=== PATIENT | male | born 1955 | race Caucasian/White ===

== ENCOUNTER 2023-03-10 09:12 | Outpatient (CLI) | payer MEDICARE, OTHER ==
--- NOTE | 2023-03-10 20:18 | XRAY Report ---
PROCEDURE: Foot 2 View RT INDICATIONS: RIGHT FOOT PAIN TECHNIQUE: 3 views of the foot were obtained. COMPARISON: None FINDINGS: Bones: No fractures or dislocations. No suspicious bony lesions. Moderate plantar calcaneal spur Soft tissues: Unremarkable. No radiopaque foreign body. Dorsal localized soft tissue swelling noted o saida the distal tarsal row. No underlying Osseous erosion. IMPRESSION: Localized dorsal soft tissue swelling without osseous erosion. Calcaneal spur Reviewed by: Tom Fisher MD on 03/10/2023 7:17 PM [place] Approved by: Tom Fisher MD on 03/10/2023 7:17 PM [place] Station ID: [id number]
== END 2023-03-10 09:13 | disposition home or self-care (01) ==
LOC: DI 09:12
PROVIDERS: ATTEND Nurse Practitioner
DX: M77.31 Calcaneal spur, right foot (principal); R93.6 Abnormal findings on diagnostic imaging of limbs; R93.89 Abnormal findings on diagnostic imaging of other specified body structures

== ENCOUNTER 2023-12-06 08:06 | Observation (INO) | payer MEDICARE, OTHER ==
[2023-12-06] MEDS: ADENOSINE 6 MG/2 ML VIAL IVP STA (08:27)
--- NOTE | 2023-12-06 08:27 | ED Physician Documentation ---
History of Present Illness - Stated complaint Stated Complaint: SOA,SORE THROAT,CONGESTION - Chief complaint Chief Complaint: Cardiac - History obtained from History obtained from: Patient - History of Present Illness Timing: How many weeks ago (1) Pain level max: 0 Pain level now: 0 - Additonal information Additional information: Patient is a 67-year-old male who presents to the emergency department complaining of 1 week of shortness of breath, cough, congestion. He states that he is not having any chest pain but does feel short of breath. History of atrial fibrillation with multiple ablations in the past. He did not take his metoprolol this morning. Patient states does not have a support clerk locally, his prior ablations and cardiac care were in [place]. Review of Systems Constitutional: reports: Chills. denies: Fever Nose: reports: Rhinorrhea / runny nose, Congestion Throat: denies: Oral lesions / sores, Sore throat Cardiac: reports: Palpitations. denies: Chest pain / pressure Respiratory: reports: Dyspnea, Cough GI: denies: Abdominal Pain, Nausea, Vomiting, Diarrhea Skin: denies: Rash Musculoskeletal: denies: Neck pain, Back pain Neurologic: denies: Headache PD PAST MEDICAL HISTORY - Past Medical History Past Medical History: Yes Cardiovascular: Congestive heart failure, Hypertension, High cholesterol, Atrial fibrillation - Past Surgical History Past Surgical History: Yes - Present Medications Home Medications: Ambulatory Orders Medication Instructions Recorded Confirmed Aspirin Chewable [[place] 81 mg PO DAILY 12/06/23 12/06/23 Aspirin] Atorvastatin [Lipitor] 10 mg PO QPM 12/06/23 12/06/23 Cetirizine [ZyrTEC] 10 mg PO MOWEFR 12/06/23 12/06/23 Magnesium Citrate 250 mg PO DAILY 12/06/23 12/06/23 Metoprolol Succinate [Toprol Xl] 50 mg PO DAILY 12/06/23 12/06/23 Multivitamin [Theragran] 1 each PO DAILY 12/06/23 12/06/23 Spironolactone [Aldactone] 25 mg PO DAILY 12/06/23 12/06/23 - Allergies Allergies/Adverse Reactions: Allergies Allergy/AdvReac Type Severity Reaction Status Date / Time No Known Drug Allergies Allergy Verified 12/06/23 08:24 - Social History Does the pt smoke?: No Smoking Status: Never smoker Does the pt drink ETOH?: Yes Does the pt have substance abuse?: No PD ED PE NORMAL - Vitals Vital signs reviewed: Yes - General General: Alert and oriented X 3, No acute distress, Well developed/nourished - HEENT HEENT: PERRL, Moist mucous membranes - Cardiac Cardiac: Other (Tachycardic) - Respiratory Respiratory: Other (Diminished breath sounds bilaterally) - Abdomen Abdomen: Soft, Non tender, Non distended - Derm Derm: Warm and dry, No rash - Extremities Extremities: No calf tenderness / cord, Other (1+ bilateral lower extremity edema) - Neuro Neuro: Alert and oriented X 3 - Psych Psych: Normal mood, Normal affect Results - Vitals Vitals: Vital Signs - 24 hr 12/06/23 12/06/23 08:11 10:24 Temperature 36.4 C L Heart Rate 240 H 120 H Respiratory 20 20 Rate Blood Pressure 125/98 H 152/128 H O2 Saturation 95 94 Oxygen O2 Source Room air - EKG (time done) 0821 EKG releavant findings:: EKG personally interpreted by author of this note. Relevant findings are: Rate: Rate (enter#) (193) Rhythm: Atrial fibrillation (RVR) [place]: Normal QRS: Normal Ischemia: Non specific changes (rate related changes) - Labs Labs: Laboratory Tests 12/06/23 12/06/23 12/06/23 08:29 08:31 08:31 WBC 10.3 RBC 4.97 Hgb 16.1 Hct 48.7 MCV 98.0 H MCH 32.4 H MCHC 33.1 RDW 15.4 H Plt Count 211 MPV 9.4 Neut # (Auto) 7.6 H Lymph # (Auto) 1.5 Chase # (Auto) 0.9 Eos # (Auto) 0.2 Baso # (Auto) 0.1 Absolute Nucleated RBC 0.00 Nucleated RBC % 0.0 Sodium 139 Potassium 4.3 Chloride 104 Carbon Dioxide 21 Anion Gap 14.0 H BUN 21 H Creatinine 0.9 Estimated GFR (MDRD) 84 L Glucose 117 H Calcium 8.7 Total Bilirubin 1.5 H AST 52 H ALT 33 Alkaline Phosphatase 101 Troponin I High Sens B-Natriuretic Peptide Total Protein 7.0 Albumin 3.3 Globulin 3.7 Albumin/Globulin Ratio 0.9 L Lipase 14 Nasal Adenovirus (PCR) NOT DETECTED Nasal B. parapertussis DNA (PCR) NOT DETECTED Nasal Coronavir 229E PCR NOT DETECTED Nasal Coronavir HKU1 PCR NOT DETECTED Nasal Coronavir NL63 PCR NOT DETECTED Nasal Coronavir OC43 PCR NOT DETECTED Nasal Enterovir/Rhinovir PCR NOT DETECTED Nasal Influenza B PCR NOT DETECTED Nasal Influenza A PCR NOT DETECTED Nasal Parainfluen 1 PCR NOT DETECTED Nasal Parainfluen 2 PCR NOT DETECTED Nasal Parainfluen 3 PCR NOT DETECTED Nasal Parainfluen 4 PCR NOT DETECTED Nasal RSV (PCR) NOT DETECTED Nasal B.pertussis DNA PCR NOT DETECTED Nasal C.pneumoniae (PCR) NOT DETECTED Doni Human Metapneumo PCR NOT DETECTED Nasal M.pneumoniae (PCR) NOT DETECTED Nasal SARS-CoV-2 (PCR) NOT DETECTED 12/06/23 12/06/23 08:31 08:31 WBC RBC Hgb Hct MCV MCH MCHC RDW Plt Count MPV Neut # (Auto) Lymph # (Auto) Chase # (Auto) Eos # (Auto) Baso # (Auto) Absolute Nucleated RBC Nucleated RBC % Sodium Potassium Chloride Carbon Dioxide Anion Gap BUN Creatinine Estimated GFR (MDRD) Glucose Calcium Total Bilirubin AST ALT Alkaline Phosphatase Troponin I High Sens 29.8 H* B-Natriuretic Peptide 380 H Total Protein Albumin Globulin Albumin/Globulin Ratio Lipase Nasal Adenovirus (PCR) Nasal B. parapertussis DNA (PCR) Nasal Coronavir 229E PCR Nasal Coronavir HKU1 PCR Nasal Coronavir NL63 PCR Nasal Coronavir OC43 PCR Nasal Enterovir/Rhinovir PCR Nasal Influenza B PCR Nasal Influenza A PCR Nasal Parainfluen 1 PCR Nasal Parainfluen 2 PCR Nasal Parainfluen 3 PCR Nasal Parainfluen 4 PCR Nasal RSV (PCR) Nasal B.pertussis DNA PCR Nasal C.pneumoniae (PCR) Doni Human Metapneumo PCR Nasal M.pneumoniae (PCR) Nasal SARS-CoV-2 (PCR) - Rads (name of study) Chest x-ray Relevant Findings:: Final report received, See rad report PD Medical Decision Making - ED course Complexity details: reviewed results, re-evaluated patient, considered differential, d/w patient ED course: Patient is a 67-year-old male who presents to the emergency department with cough, tachycardia and shortness of breath. Upon presentation found to be in atrial fibrillation with rapid ventricular response, heart rate up to 240. Was given 20 mg of IV diltiazem, heart rate came down to approximately 1 20-1 40. Patient with a chest x-ray that appears consistent with congestive heart failure to me. He was given Lasix. He has had a cough for the past week, this could be due to the pulmonary edema, but as the chest x-ray was concerning for possible pneumonia, we will cover with antibiotics. Given the patient is requiring a diltiazem drip for A-fib with RVR, we will place the patient observation. Discussed the case with the hospitalist, Dr. Altman, who accepts. This document was made in part using voice recognition software. While efforts are made to proofread this document, sound alike and grammatical errors may occur. Departure - Departure Disposition: ED Place in Observation Clinical Impression: Atrial fibrillation with rapid ventricular response Pneumonia Qualifiers: Pneumonia type: due to unspecified organism Laterality: bilateral Lung location: lower lobe of lung Qualified Code(s): J18.9 - Pneumonia, unspecified organism CHF (congestive heart failure) Qualifiers: Heart failure type: unspecified Heart failure chronicity: unspecified Qualified Code(s): I50.9 - Heart failure, unspecified Condition: Stable Discharge Date/Time: 12/06/23 12:05
[2023-12-06] MEDS: SODIUM CHLORIDE 0.9% 1,000 ML IV STA (08:30)
[2023-12-06] MEDS: diltiaZEM INJ 5 MG/ML VIAL IVP STA (08:37)
[2023-12-06 08:45] LABS: BASOPHILS # (AUTO) 0.1 10^3/uL (0.0-0.1); BASOPHILS % (AUTO) 1.3 %; EOSINOPHILS # (AUTO) 0.2 10^3/uL (0.0-0.7); HCT - HEMATOCRIT 48.7 % (42.0-52.0); HGB - HEMOGLOBIN 16.1 g/dL (14.0-18.0); LYMPHOCYTES # (AUTO) 1.5 10^3/uL (1.5-3.5); LYMPHOCYTES % (AUTO) 14.1 %; MEAN CORPUSCULAR HEMOGLOBIN 32.4 pg (27.0-31.0); MEAN CORPUSCULAR HGB CONC 33.1 g/dL (32.0-36.0); MEAN PLATELET VOLUME 9.4 fL (7.4-11.4); MONOCYTES # (AUTO) 0.9 10^3/uL (0.0-1.0); MONOCYTES % (AUTO) 8.6 %; NEUTROPHILS # (AUTO) 7.6 10^3/uL (1.5-6.6); NEUTROPHILS % (AUTO) 73.6 %; PLT - PLATELET COUNT 211 10^3/uL (130-450); RED BLOOD COUNT 4.97 10^6/uL (4.70-6.10); RED CELL DISTRIBUTION WIDTH 15.4 % (12.0-15.0); WHITE BLOOD COUNT 10.3 x10^3/uL (4.8-10.8)
[2023-12-06 08:57] LABS: ALBUMIN 3.3 g/dL (3.2-5.5); ALBUMIN/GLOBULIN RATIO 0.9 (1.0-2.2); BILIRUBIN,TOTAL 1.5 mg/dL (0.2-1.0); CALCIUM 8.7 mg/dL (8.5-10.3); CREATININE 0.9 mg/dL (0.6-1.3); POTASSIUM 4.3 mmol/L (3.5-4.5)
--- NOTE | 2023-12-06 09:22 | XRAY Report ---
PROCEDURE: Chest 1V INDICATIONS: cough TECHNIQUE: One view of the chest was acquired. COMPARISON: None. FINDINGS: Surgical changes and devices: None. Lungs and pleura: No pleural effusions or pneumothorax. Bilateral basilar predominant patchy consoli dation, left greater than right. Small bilateral pleural effusions, left greater than right. Mild dif fuse interstitial prominence. Mediastinum: Mediastinal contours appear normal. Heart size is at the upper limits of normal. Bones and chest wall: No suspicious bony lesions. Overlying soft tissues appear unremarkable. IMPRESSION: 1.Bilateral basilar predominant patchy consolidation, left greater than right, compatible with multif ocal infection and/or aspiration. 2.Small bilateral pleural effusions, left greater than right. 3.Mild pulmonary edema which may be secondary to heart failure given heart size is at the upper limit s of normal. Reviewed by: David Dunbar MD on 12/06/2023 8:20 AM YANIRA Approved by: David Dunbar MD on 12/06/2023 8:20 AM YANIRA Station ID: [id number]
[2023-12-06 09:30] LABS: B. PARAPERTUSSIS- RESP PCR PAN NOT DETECTED; B. PERTUSSIS- RESP PCR PANEL NOT DETECTED; C. PNEUMONIAE- RESP PCR PANEL NOT DETECTED; CORONAVIRUS 229E-RESP PCR NOT DETECTED; CORONAVIRUS HKU1-RESP PCR NOT DETECTED; CORONAVIRUS NL63-RESP PCR NOT DETECTED; CORONAVIRUS OC43-RESP PCR NOT DETECTED; HUMAN METAPNEUMOVIRUS NOT DETECTED; INFLUENZA A- RESP PCR PANEL NOT DETECTED; INFLUENZA B - RESP PCR PANEL NOT DETECTED; M. PNEUMONIAE- RESP PCR PANEL NOT DETECTED; PARAINFLUENZA VIRUS 1 NOT DETECTED; PARAINFLUENZA VIRUS 2 NOT DETECTED; PARAINFLUENZA VIRUS 3 NOT DETECTED; PARAINFLUENZA VIRUS 4 NOT DETECTED; RHINOVIRUS/ENTEROVIRUS NOT DETECTED; RSV- RESP PCR PANEL NOT DETECTED; SARS-CoV-2 -RESP PCR PANEL NOT DETECTED
[2023-12-06] MEDS: cefTRIAXone 1 GM VIAL IVP STA (10:21)
[2023-12-06] MEDS: FUROSEMIDE 40 MG/4 ML VIAL IVP STA (10:23)
[2023-12-06] MEDS: diltiaZEM INJ 125 MG in DEXTROSE 5% 100 ML IV STA (10:27)
[2023-12-06] MEDS ORDERED: oxyCODONE 5 MG TABLET PO PRN (10:52)
[2023-12-06] MEDS ORDERED: ONDANSETRON 4 MG/2 ML VIAL IVP PRN (10:52)
[2023-12-06] MEDS ORDERED: ONDANSETRON ODT 4 MG TABLET TL PRN (10:52)
[2023-12-06] MEDS ORDERED: ACETAMINOPHEN 325 MG TABLET PO PRN (10:52)
[2023-12-06] MEDS: AZITHROMYCIN INJ 500 MG in SODIUM CHLORIDE 0.9% 250 ML IV STA (10:53)
[2023-12-06] MEDS: BENZOCAINE/MENTHOL LOZENGE MM STA (12:35)
[2023-12-06] MEDS: APIXABAN 5 MG TABLET PO SCH (12:35)
[2023-12-06] MEDS: diltiaZEM CD 120 MG CAPSULE PO STA (12:35)
[2023-12-06] MEDS: METOPROLOL SUCCINATE 50 MG TABLET PO SCH (12:35)
--- NOTE | 2023-12-06 12:38 | PHARMACY PROGRESS NOTE ---
- Best Possible Medication History Admit Date and Time: 12/06/23 1042 Processed by: Pharmacy Medication History completed: Yes Patient Interview: Completed Secondary Source(s): Written medication list, Pharmacy records As the person ultimately responsible for medication therapy, providers are able to order a medication from an existing home medication list in [facility] via the "Reconcile Routine" prior to Confirmation of that medication by business support professional. Such practice is discouraged except when the physician, in their clinical judgment, deems that a medical need exists for a medication without regard to previous use.
[2023-12-06 13:57] LABS: BASOPHILS # (AUTO) 0.1 10^3/uL (0.0-0.1); BASOPHILS % (AUTO) 0.9 %; EOSINOPHILS % (AUTO) 0.3 %; HCT - HEMATOCRIT 48.1 % (42.0-52.0); LYMPHOCYTES # (AUTO) 0.6 10^3/uL (1.5-3.5); LYMPHOCYTES % (AUTO) 6.7 %; MEAN CORPUSCULAR HEMOGLOBIN 32.7 pg (27.0-31.0); MEAN CORPUSCULAR HGB CONC 33.3 g/dL (32.0-36.0); MEAN CORPUSCULAR VOLUME 98.2 fL (80.0-94.0); MEAN PLATELET VOLUME 9.5 fL (7.4-11.4); MONOCYTES # (AUTO) 0.7 10^3/uL (0.0-1.0); MONOCYTES % (AUTO) 7.5 %; NEUTROPHILS # (AUTO) 8.1 10^3/uL (1.5-6.6); PLT - PLATELET COUNT 194 10^3/uL (130-450); RED CELL DISTRIBUTION WIDTH 15.5 % (12.0-15.0); WHITE BLOOD COUNT 9.6 x10^3/uL (4.8-10.8)
[2023-12-06 14:13] LABS: ALBUMIN 3.3 g/dL (3.2-5.5); ALBUMIN/GLOBULIN RATIO 0.9 (1.0-2.2); BILIRUBIN,TOTAL 1.7 mg/dL (0.2-1.0); CALCIUM 8.6 mg/dL (8.5-10.3); CREATININE 0.9 mg/dL (0.6-1.3); POTASSIUM 4.2 mmol/L (3.5-4.5)
--- NOTE | 2023-12-06 14:13 | HISTORY & PHYSICAL EXAMINATION ---
Chief Complaint - Chief Complaint Chief Complaint: SOA, Sore Throat, Congestion History of Present Illness - Admitted From Admitted From:: Emergency Room - History Obtained From History obtained from: Patient - History of Present Illness HPI Comment/Other: Pt is a 67 year-old male with a past medical history of congestive heart failure, hypertension, high cholesterol, a-fib with multiple ablations, and COPD, who came into the emergency department complaining of sore throat, productive cough, and congestion that started about one week ago. He states that he is having shortness of breath, but no chest pain. While being evaluated in the emergency department, he was noted to have a heart rate of 240. An EKG was done that showed supraventricular tachycardia with a rate of 193. Chest x- ray showed bilateral bibasilar patchy consolidations L>R compatible with multifocal infection and/or aspiration, small bilateral pleural effusions L>R, and mild pulmonary edema. Pt was otherwise stable on room air with oxygen saturations in the mid 90s, respiratory rate in the 20s, and he was able to speak in full sentences. States his cough was productive with "orange" sputum. He was started on IV diltiazem drip and given 40gm of Lasix IV push. Azithromycin and Rocephin were initiated for possible pneumonia. He takes metoprolol at home but did not take his dose this morning. The patient relocated to [facility] from [place] (where he previously had very good healthcare) about one year ago as his son was stationed here. He is currently living in a rental home and is in transition to [place] where his currently resides. He has not been able to find a primary care physician on [facility] nor a drive away driver, and has not been seen for his chronic health conditions in about a year. He has had multiple surgeries that include multiple cardiac ablations, two hernia repairs, an ulnar nerve transition, and a ruptured diverticulosis/diverticulitis. He will be transitioned to the ICU for observation. He has been started on a diltiazem drip and given one dose of 40mg lasix IV push. History - Past Medical History Cardiovascular: reports: Congestive heart failure, Hypertension, High cholesterol, Atrial fibrillation, Other (Watchman device placed about 1.5 years ago) Respiratory: reports: COPD Neuro: reports: None Endocrine/Autoimmune: reports: None GI: reports: Diverticulitis : reports: None HEENT: reports: None Psych: reports: None Musculoskeletal: reports: Gout (One gout flare many years ago. No recurrence.) Derm: reports: None - Past Surgical History General: reports: Bowel surgery (Ruptured diverticulitis) Ortho: reports: Other (ulnar nerve transition) Cardiovascular: reports: Other (Watchman device placed about 1.5 years ago) - Family & Social History Family History: Mother: (Mother and father both at 66 y/o. Mother of stroke and father of "blood clot" s/p amputation.), Father: , Diabetes, Type 2 Living arrangement: At home Living Situation: Alone, With spouse/s.o. - Substance History Use: Uses substance without health or social issues: Tobacco (Smoke cigarettes, quit in the when he was diagnosed with COPD), Alcohol Use Issues: Intoxication, Other (exhibiting symptoms of dependence) Tobacco Details: Cigarettes - POLST Patient has POLST: No POLST Status: Full Code Meds/Allgy - Home Medications Home Medications: Ambulatory Orders Medication Instructions Recorded Confirmed Aspirin Chewable [[place]ayne 81 mg PO DAILY 12/06/23 12/06/23 Aspirin] Atorvastatin [Lipitor] 10 mg PO QPM 12/06/23 12/06/23 Cetirizine [ZyrTEC] 10 mg PO MOWEFR 12/06/23 12/06/23 Magnesium Citrate 250 mg PO DAILY 12/06/23 12/06/23 Metoprolol Succinate [Toprol Xl] 50 mg PO DAILY 12/06/23 12/06/23 Multivitamin [Theragran] 1 each PO DAILY 12/06/23 12/06/23 Spironolactone [Aldactone] 25 mg PO DAILY 12/06/23 12/06/23 - Allergies Allergies/Adverse Reactions: Allergies Allergy/AdvReac Type Severity Reaction Status Date / Time No Known Drug Allergies Allergy Verified 12/06/23 08:24 Review of Systems - Constitutional Constitutional: reports: Fatigue - Ears, Nose & Throat Ears, Nose & Throat: reports: Nasal congestion, Sore throat - Cardiovascular Cariovascular: reports: Irregular heart rate - Respiratory Respiratory: reports: Cough, Sputum production (Pt states productive cough of orange sputum), SOB at rest, SOB with exertion Exam - Vital Signs Reviewed Vital Signs: Yes Vital Signs: Vital Signs x48h Temp Pulse Resp BP Pulse Ox 12/06/23 10:55 147 H 22 159/114 H 92 12/06/23 10:24 120 H 20 152/128 H 94 12/06/23 08:11 36.4 C L 240 H 20 125/98 H 95 - Physical Exam General Appearance: positive: Mild distress Eyes Bilateral: positive: Normal inspection, PERRL ENT: positive: ENT inspection nml, Pharynx nml, No signs of dehydration Neck: positive: Nml inspection, Thyroid nml, No JVD, Trachea midline Respiratory: positive: Chest non-tender, Rales (Rales noted in bases bilateral), Rhonchi (Expiratory rhonchi heard in upper lobes bilateral.) Cardiovascular: positive: Regular rate & rhythm, No murmur, No gallop, Tachycardia. negative: JVD present Peripheral Pulses: positive: 2+ Abdomen: positive: Non-tender, No organomegaly, Nml bowel sounds, No distention. negative: Tenderness Skin: positive: Color nml, Warm Extremities: positive: Non-tender, Nml appearance, No pedal edema Neurologic/Psychiatric: positive: Oriented x3, Motor nml, Sensation nml, Mood/affect nml, Disoriented to person, Disoriented to place, Disoriented to time Conclusion/Plan - Problem List (1) CHF (congestive heart failure) Conclusion/Plan: 67 year-old male with a past medical history of congestive heart failure, hypertension, high cholesterol, a-fib with multiple ablations, and COPD, who came into the emergency department complaining of sore throat, productive cough, and congestion that started about one week ago and was found to be in SVT with a heart rate of 240. Chest x-ray showed bilateral bibasilar patchy consolidations L>R compatible with multifocal infection and/or aspiration, small bilateral pleural effusions L>R, and mild pulmonary edema. He is stable on room air with oxygen saturations in the mid-90s and can speak in full sentences. Pt has been started on diltiazem for rate control and given 40mg of lasix in the ED. Qualifiers: Heart failure type: unspecified Heart failure chronicity: unspecified Qualified Code(s): I50.9 - Heart failure, unspecified (2) Atrial fibrillation with rapid ventricular response Conclusion/Plan: The patient arrived in the ED today with one week of sore throat, productive cough, and congestion. He was found to have a heart rate of 240 and an EKG showed SVT. He was started on diltiazem in the ED and his heart rate has decreased. Continue diltiazem and the patient will be started on Eliquis. (3) Pneumonia Conclusion/Plan: Pt is here today with a likely CHF exacerbation with rapid a-fib and an underlying history of COPD. Chest x-ray showed bilateral bibasilar patchy consolidations L>R compatible with multifocal infection and/or aspiration, small bilateral pleural effusions L>R, and mild pulmonary edema. Pt was given azithromycin and rocephin in the ED. The patient is afebrile and his white count is normal. He is being admitted for observation for likely CHF exacerbation. Will hold antibiotics and reevaluate if the patient's status worsens, he becomes febrile, or his white count increases. Qualifiers: Pneumonia type: due to unspecified organism Laterality: bilateral Lung location: lower lobe of lung Qualified Code(s): J18.9 - Pneumonia, unspecified organism (4) Hyperlipidemia Conclusion/Plan: Managed outpatient with atorvastatin. Continue current medicaiton. Qualifiers: Hyperlipidemia type: unspecified Qualified Code(s): E78.5 - Hyperlipidemia, unspecified (6) Hypertension Conclusion/Plan: Managed outpatient on metoprolol and spironolactone. He did not take his metoprolol this morning and is hypertensive in the ED with systolic blood pressure in the 150s. He was started on diltiazem and given 40mg of lasix in the ED. Pt received lasix in the ED and will resume his normal dose of metoprolol while in the hospital. Continue current medications and treat HTN if necessary. Qualifiers: Hypertension type: unspecified Qualified Code(s): I10 - Essential (primary) hypertension - Lab Results Fish Bones: 12/06/23 13:44 12/06/23 13:44 Core Measures - Anticipated LOS I expect patient to be DC'd or transferred within 96 hours.: Yes
[2023-12-06] MEDS: chlordiazePOXIDE 5 MG CAPSULE PO PRN (14:14)
[2023-12-06 14:15] LABS: INR 1.3 (0.8-1.2); PT - PROTHROMBIN TIME 13.7 secs (9.9-12.6)
[2023-12-06 15:05] LABS: PHOSPHORUS 3.2 mg/dL (2.5-5.0)
[2023-12-06 15:12] LABS: MAGNESIUM 0.9 mg/dL (1.7-2.3)
[2023-12-06] MEDS: MAGNESIUM SULFATE 2 GRAM 2 GM/50 ML BAG IV SCH (15:27)
[2023-12-06 16:44] LABS: CALCIUM, IONIZED 1.03 mmol/L (1.15-1.33); VBG PH 7.548 (7.31-7.41)
[2023-12-06] MEDS ORDERED: CALCIUM GLUC 1,000MG/50ML-NACL 1,000 MG/50 ML BAG IV ONE (17:18)
--- NOTE | 2023-12-06 17:20 | ADVANCE CARE PLANNING NOTE ---
Advance Care Planning - Planning Encounter Date: 12/06/23 Time: 17:48 Purpose: Determine goals of care If becomes more more clear throughout the day today that although patient has been for 44 years he is living separately from his . I am unsure if he intends to continue to live separately from his . I am concerned that he is very much alone in this world. Parties in Attendance: Patient, April Cameron JENKINS Decisional Capacity of the Patient: Alert and oriented Has some insight into his medical condition - Encounter Subjective/Patient's Story: Asad presented to the emergency department this morning complaining of a sore throat. He was found to have a heart rate of 240 with acute exacerbation of CHF and atrial fibrillation with rapid ventricular response. He is living alone in [place]. He has family on the [place] but they are moving to [place] and his is already moved to [place]. He states that he is wrapping up living in their rental home [place] the [place] but in further discussion with the patient it seems that maybe he is not planning to move back to the [facility] where his is. When discussing what gives him nguyễn in life he states he really loves to fly fish. He goes to [place] at least once a year and also enjoys flyfishing on the [employer]. Objective/Medical Story: This patient is a difficult historian. It appears that he has a longstanding history of atrial fibrillation maybe in the past had heart failure but recovered ejection fraction. He has a history of Watchman device which is why he is not anticoagulated for his atrial fibrillation he seems to have a very optimistic outlook with regards to his health. It seems that maybe many years ago he had a COPD exacerbation but denies any history of COPD states he was cured. In any event he wants to remain full code with all interventions given at least initially he does express that he would never want to live in a dependent state for a long period of time Goals of Care: Full care full code Plan: POLST completed, Full code, all medical interventions Code Status: Attempt Resuscitation Time spent on advance care plannin min
[2023-12-06] MEDS: SODIUM CHLORIDE FLUSH 0.9% 10 ML SYRINGE IVP SCH (17:22)
[2023-12-06] MEDS: CALCIUM GLUC 1,000MG/50ML-NACL 1,000 MG/50 ML BAG IV ONE (17:22)
[2023-12-06] MEDS: IPRATROPIUM/ALBUTEROL 3 ML NEB INH PRN (17:44)
[2023-12-06] MEDS: diltiaZEM INJ 125 MG in DEXTROSE 5% 100 ML IV SCH (18:08)
[2023-12-06] MEDS: FUROSEMIDE 40 MG/4 ML VIAL IVP SCH (18:08)
[2023-12-06] MEDS: SODIUM CHLORIDE FLUSH 0.9% 10 ML SYRINGE IVP PRN (18:08)
[2023-12-06 20:37] LABS: CALCIUM, IONIZED 1.06 mmol/L (1.15-1.33); VBG PH 7.547 (7.31-7.41)
[2023-12-06] MEDS: CALCIUM CARBONATE CHEW 500 MG TABLET PO SCH (21:09)
[2023-12-06] MEDS: MAGNESIUM OXIDE 400 MG TABLET PO ONE (21:09)
[2023-12-07 04:19] LABS: BASOPHILS # (AUTO) 0.1 10^3/uL (0.0-0.1); BASOPHILS % (AUTO) 0.9 %; EOSINOPHILS # (AUTO) 0.1 10^3/uL (0.0-0.7); EOSINOPHILS % (AUTO) 1.7 %; HCT - HEMATOCRIT 43.4 % (42.0-52.0); HGB - HEMOGLOBIN 14.9 g/dL (14.0-18.0); LYMPHOCYTES # (AUTO) 0.7 10^3/uL (1.5-3.5); MEAN CORPUSCULAR HEMOGLOBIN 33.2 pg (27.0-31.0); MEAN CORPUSCULAR HGB CONC 34.3 g/dL (32.0-36.0); MEAN CORPUSCULAR VOLUME 96.7 fL (80.0-94.0); MEAN PLATELET VOLUME 9.4 fL (7.4-11.4); MONOCYTES # (AUTO) 0.7 10^3/uL (0.0-1.0); MONOCYTES % (AUTO) 8.8 %; NEUTROPHILS # (AUTO) 6.4 10^3/uL (1.5-6.6); NEUTROPHILS % (AUTO) 79.1 %; PLT - PLATELET COUNT 143 10^3/uL (130-450); RED BLOOD COUNT 4.49 10^6/uL (4.70-6.10); WHITE BLOOD COUNT 8.1 x10^3/uL (4.8-10.8)
[2023-12-07 04:20] LABS: CALCIUM, IONIZED 1.07 mmol/L (1.15-1.33); VBG PH 7.573 (7.31-7.41)
[2023-12-07 04:28] LABS: BILIRUBIN,DIRECT 0.77 mg/dL (0.03-0.18); MAGNESIUM 1.4 mg/dL (1.7-2.3)
[2023-12-07 04:34] LABS: BILIRUBIN,TOTAL 2.1 mg/dL (0.2-1.0); CALCIUM 8.8 mg/dL (8.5-10.3); CREATININE 0.9 mg/dL (0.6-1.3); PHOSPHORUS 3.3 mg/dL (2.5-5.0); POTASSIUM 3.6 mmol/L (3.5-4.5); TOTAL PROTEIN 6.1 g/dL (6.4-8.9)
[2023-12-07] MEDS: MAGNESIUM OXIDE 400 MG TABLET PO ONE (06:47)
[2023-12-07] MEDS: CALCIUM CARBONATE CHEW 500 MG TABLET PO SCH (06:48)
[2023-12-07] MEDS ORDERED: METOPROLOL SUCCINATE 50 MG TABLET PO SCH (09:00)
[2023-12-07] MEDS: MULTIVITAMIN TABLET PO SCH (09:27)
[2023-12-07] MEDS: POTASSIUM CHLORIDE 20 MEQ TABLET PO ONE (09:27)
[2023-12-07] MEDS: ASPIRIN CHEW 81 MG TABLET PO SCH (09:27)
[2023-12-07] MEDS: METOPROLOL SUCCINATE 50 MG TABLET PO SCH (09:28)
[2023-12-07] MEDS: FUROSEMIDE 40 MG/4 ML VIAL IVP ONE (10:40)
--- NOTE | 2023-12-07 11:25 | PROVIDER PROGRESS NOTE ---
Subjective - Prog Note Date Prog Note Date: 12/07/23 - Subjective Pt reports feeling: Improved (Feels much better after dose of Lasix yesterday. Reports high urine output, and subsequent decreased work of breathing. Hopeful for discharge soon) Objective - Vital Signs/Intake & Output Reviewed Vital Signs: Yes Vital Signs: Vital Signs x48h Temp Pulse Resp BP Pulse Ox O2 Flow Rate 12/07/23 11:00 72 21 115/89 H 92 12/07/23 10:00 117 H 18 117/84 H 94 2 12/07/23 09:00 115 H 19 127/91 H 95 2 12/07/23 08:00 36.6 C 116 H 17 117/67 95 2 12/07/23 07:55 2 12/07/23 07:00 115 H 17 131/97 H 93 2 12/07/23 06:00 111 H 14 128/95 H 93 2 12/07/23 05:00 112 H 14 114/92 H 92 2 12/07/23 04:00 36.6 C 111 H 14 110/79 92 2 Intake & Output: Intake & Output 12/04/23 12/05/23 12/06/23 12/07/23 23:59 23:59 23:59 23:59 Intake Total 2112.833 1105.5 Output Total 1770 125 Balance 342.833 980.5 - Objective General Appearance: positive: No acute distress Eyes Bilateral: positive: Normal inspection Neck: positive: Nml inspection Respiratory: positive: Chest non-tender, No respiratory distress, Other (Crackles in bases) Cardiovascular: positive: Regular rate & rhythm Abdomen: positive: Non-tender Skin: positive: Color nml Extremities: positive: Non-tender Neurologic/Psychiatric: positive: Oriented x3 - Lab Results Fish Bones: 12/07/23 04:14 12/07/23 04:14 Other Labs: Lab Results x24hrs 12/07/23 12/07/23 12/07/23 Range/Units 04:14 04:14 04:14 WBC 8.1 (4.8-10.8) x10^3/uL RBC 4.49 L (4.70-6.10) 10^6/uL Hgb 14.9 (14.0-18.0) g/dL Hct 43.4 (42.0-52.0) % MCV 96.7 H (80.0-94.0) fL MCH 33.2 H (27.0-31.0) pg MCHC 34.3 (32.0-36.0) g/dL RDW 15.0 (12.0-15.0) % Plt Count 143 (130-450) 10^3/uL MPV 9.4 (7.4-11.4) fL Neut # (Auto) 6.4 (1.5-6.6) 10^3/uL Lymph # (Auto) 0.7 L (1.5-3.5) 10^3/uL Island # (Auto) 0.7 (0.0-1.0) 10^3/uL Eos # (Auto) 0.1 (0.0-0.7) 10^3/uL Baso # (Auto) 0.1 (0.0-0.1) 10^3/uL Absolute Nucleated RBC 0.00 x10^3/uL Nucleated RBC % 0.0 /100WBC PT (9.9-12.6) secs INR (0.8-1.2) VBG pH 7.573 H (7.31-7.41) Ionized Calcium 1.07 L (1.15-1.33) mmol/L Sodium 135 (135-145) mmol/L Potassium 3.6 (3.5-4.5) mmol/L Chloride 98 L (101-111) mmol/L Carbon Dioxide 28 (21-32) mmol/L Anion Gap 9.0 (6-13) BUN 20 (6-20) mg/dL Creatinine 0.9 (0.6-1.3) mg/dL Estimated GFR (MDRD) 84 L (>89) Glucose 128 H (74-104) mg/dL Calcium 8.8 (8.5-10.3) mg/dL Phosphorus 3.3 (2.5-5.0) mg/dL Magnesium 1.4 L (1.7-2.3) mg/dL Total Bilirubin 2.1 H (0.2-1.0) mg/dL Direct Bilirubin 0.77 H (0.03-0.18) mg/dL AST 39 (10-42) IU/L ALT 26 (10-60) IU/L Alkaline Phosphatase 90 (42-121) IU/L Troponin I High Sens (2.3-19.7) ng/L Total Protein 6.1 L (6.4-8.9) g/dL Albumin 3.0 L (3.2-5.5) g/dL Globulin 3.1 (2.1-4.2) g/dL Albumin/Globulin Ratio (1.0-2.2) Nasal Screen MRSA (PCR) (NEGATIVE) 12/06/23 12/06/23 12/06/23 Range/Units 20:31 20:31 16:37 WBC (4.8-10.8) x10^3/uL RBC (4.70-6.10) 10^6/uL Hgb (14.0-18.0) g/dL Hct (42.0-52.0) % MCV (80.0-94.0) fL MCH (27.0-31.0) pg MCHC (32.0-36.0) g/dL RDW (12.0-15.0) % Plt Count (130-450) 10^3/uL MPV (7.4-11.4) fL Neut # (Auto) (1.5-6.6) 10^3/uL Lymph # (Auto) (1.5-3.5) 10^3/uL Island # (Auto) (0.0-1.0) 10^3/uL Eos # (Auto) (0.0-0.7) 10^3/uL Baso # (Auto) (0.0-0.1) 10^3/uL Absolute Nucleated RBC x10^3/uL Nucleated RBC % /100WBC PT (9.9-12.6) secs INR (0.8-1.2) VBG pH 7.547 H 7.548 H (7.31-7.41) Ionized Calcium 1.06 L 1.03 L (1.15-1.33) mmol/L Sodium (135-145) mmol/L Potassium (3.5-4.5) mmol/L Chloride (101-111) mmol/L Carbon Dioxide (21-32) mmol/L Anion Gap (6-13) BUN (6-20) mg/dL Creatinine (0.6-1.3) mg/dL Estimated GFR (MDRD) (>89) Glucose (74-104) mg/dL Calcium (8.5-10.3) mg/dL Phosphorus (2.5-5.0) mg/dL Magnesium 1.7 (1.7-2.3) mg/dL Total Bilirubin (0.2-1.0) mg/dL Direct Bilirubin (0.03-0.18) mg/dL AST (10-42) IU/L ALT (10-60) IU/L Alkaline Phosphatase (42-121) IU/L Troponin I High Sens (2.3-19.7) ng/L Total Protein (6.4-8.9) g/dL Albumin (3.2-5.5) g/dL Globulin (2.1-4.2) g/dL Albumin/Globulin Ratio (1.0-2.2) Nasal Screen MRSA (PCR) (NEGATIVE) 12/06/23 12/06/23 12/06/23 Range/Units 16:37 13:44 13:44 WBC (4.8-10.8) x10^3/uL RBC (4.70-6.10) 10^6/uL Hgb (14.0-18.0) g/dL Hct (42.0-52.0) % MCV (80.0-94.0) fL MCH (27.0-31.0) pg MCHC (32.0-36.0) g/dL RDW (12.0-15.0) % Plt Count (130-450) 10^3/uL MPV (7.4-11.4) fL Neut # (Auto) (1.5-6.6) 10^3/uL Lymph # (Auto) (1.5-3.5) 10^3/uL Island # (Auto) (0.0-1.0) 10^3/uL Eos # (Auto) (0.0-0.7) 10^3/uL Baso # (Auto) (0.0-0.1) 10^3/uL Absolute Nucleated RBC x10^3/uL Nucleated RBC % /100WBC PT (9.9-12.6) secs INR (0.8-1.2) VBG pH (7.31-7.41) Ionized Calcium (1.15-1.33) mmol/L Sodium 139 (135-145) mmol/L Potassium 4.2 (3.5-4.5) mmol/L Chloride 101 (101-111) mmol/L Carbon Dioxide 23 (21-32) mmol/L Anion Gap 15.0 H (6-13) BUN 20 (6-20) mg/dL Creatinine 0.9 (0.6-1.3) mg/dL Estimated GFR (MDRD) 84 L (>89) Glucose 161 H (74-104) mg/dL Calcium 8.6 (8.5-10.3) mg/dL Phosphorus 3.2 (2.5-5.0) mg/dL Magnesium 0.9 L* (1.7-2.3) mg/dL Total Bilirubin 1.7 H (0.2-1.0) mg/dL Direct Bilirubin (0.03-0.18) mg/dL AST 50 H (10-42) IU/L ALT 33 (10-60) IU/L Alkaline Phosphatase 100 (42-121) IU/L Troponin I High Sens 23.5 H* (2.3-19.7) ng/L Total Protein 7.0 (6.4-8.9) g/dL Albumin 3.3 (3.2-5.5) g/dL Globulin 3.7 (2.1-4.2) g/dL Albumin/Globulin Ratio 0.9 L (1.0-2.2) Nasal Screen MRSA (PCR) (NEGATIVE) 12/06/23 12/06/23 12/06/23 Range/Units 13:44 13:44 12:15 WBC 9.6 (4.8-10.8) x10^3/uL RBC 4.90 (4.70-6.10) 10^6/uL Hgb 16.0 (14.0-18.0) g/dL Hct 48.1 (42.0-52.0) % MCV 98.2 H (80.0-94.0) fL MCH 32.7 H (27.0-31.0) pg MCHC 33.3 (32.0-36.0) g/dL RDW 15.5 H (12.0-15.0) % Plt Count 194 (130-450) 10^3/uL MPV 9.5 (7.4-11.4) fL Neut # (Auto) 8.1 H (1.5-6.6) 10^3/uL Lymph # (Auto) 0.6 L (1.5-3.5) 10^3/uL Island # (Auto) 0.7 (0.0-1.0) 10^3/uL Eos # (Auto) 0.0 (0.0-0.7) 10^3/uL Baso # (Auto) 0.1 (0.0-0.1) 10^3/uL Absolute Nucleated RBC 0.00 x10^3/uL Nucleated RBC % 0.0 /100WBC PT 13.7 H (9.9-12.6) secs INR 1.3 H (0.8-1.2) VBG pH (7.31-7.41) Ionized Calcium (1.15-1.33) mmol/L Sodium (135-145) mmol/L Potassium (3.5-4.5) mmol/L Chloride (101-111) mmol/L Carbon Dioxide (21-32) mmol/L Anion Gap (6-13) BUN (6-20) mg/dL Creatinine (0.6-1.3) mg/dL Estimated GFR (MDRD) (>89) Glucose (74-104) mg/dL Calcium (8.5-10.3) mg/dL Phosphorus (2.5-5.0) mg/dL Magnesium (1.7-2.3) mg/dL Total Bilirubin (0.2-1.0) mg/dL Direct Bilirubin (0.03-0.18) mg/dL AST (10-42) IU/L ALT (10-60) IU/L Alkaline Phosphatase (42-121) IU/L Troponin I High Sens (2.3-19.7) ng/L Total Protein (6.4-8.9) g/dL Albumin (3.2-5.5) g/dL Globulin (2.1-4.2) g/dL Albumin/Globulin Ratio (1.0-2.2) Nasal Screen MRSA (PCR) NEGATIVE (NEGATIVE) - Diagnostic Imaging Diagnostic Imaging Results: positive: Final report reviewed Diagnostic Imaging Comments: chest x-ray Sepsis Event Note (H) - Evaluation Current Stage of Sepsis: Ruled out Assessment/Plan - Problem List (1) Atrial fibrillation with rapid ventricular response Impression: (1) CHF (congestive heart failure) Conclusion/Plan: PMH HFpEF, LIZBET 08/16/2021 shows EF 62%. X-ray on admission shows bilateral bibasilar patchy consolidations left greater than right. This is thought to be the primary cause of his increased work of breathing. He was started on IV Lasix 40 mg IV and has received 2 doses. Will order another dose today. Optimizing his heart rate with metoprolol/Cardizem Qualifiers: Heart failure type: unspecified Heart failure chronicity: unspecified Qualified Code(s): I50.9 - Heart failure, unspecified (2) Atrial fibrillation with rapid ventricular response Conclusion/Plan: The patient arrived in the ED today with one week of sore throat, productive cough, and congestion. He was found to have a heart rate of 240 and an EKG showed SVT. He was started on diltiazem in the ED and his heart rate has decreased. Continue diltiazem and the patient will be started on Eliquis. He has A-fib RVR as high as 240 on telemetry is currently managed with metoprolol and Cardizem. While at home, and missed 1 days dose before presentation to the ED. I have increased his metoprolol from his home dose of 50 mg to 100 mg daily of metoprolol succinate. He was also started on Cardizem p.o. and IV yesterday. He is currently on 15 mg an hour of Cardizem. Added additional one-time dose of metoprolol IV so that hopefully he can be weaned off his Cardizem drip soon and transferred out of the ER. (3) Pneumonia Conclusion/Plan: Chest x-ray on admit showed patchy consolidations in bilateral bases compatible with multifocal infection and/or aspiration/pleural effusions/pulmonary edema. He has no elevation in WBC and is afebrile. Therefore antibiotics have been held after his initial dose. His WBCs have remained normal, Therefore we will continue to hold off on antibiotics at this time. We will consider this ruled out at this time Qualifiers: Pneumonia type: due to unspecified organism Laterality: bilateral Lung location: lower lobe of lung Qualified Code(s): J18.9 - Pneumonia, unspecified organism (4) Hyperlipidemia Conclusion/Plan: Managed outpatient with atorvastatin. Continue current medication. Qualifiers: Hyperlipidemia type: unspecified Qualified Code(s): E78.5 - Hyperlipidemia, unspecified (6) Hypertension Conclusion/Plan: Currently on high doses of metoprolol and Cardizem for his A-fib RVR, as well as Lasix IV pushes. Will likely be discharged on increased doses of metoprolol and possibly Cardizem (2) CHF (congestive heart failure) Qualifiers: Heart failure type: unspecified Heart failure chronicity: unspecified Qualified Code(s): I50.9 - Heart failure, unspecified (4) Hyperlipidemia Qualifiers: Hyperlipidemia type: unspecified Qualified Code(s): E78.5 - Hyperlipidemia, unspecified (5) Hypertension Qualifiers: Hypertension type: unspecified Qualified Code(s): I10 - Essential (primary) hypertension (6) Pneumonia Qualifiers: Pneumonia type: due to unspecified organism Laterality: bilateral Lung location: lower lobe of lung Qualified Code(s): J18.9 - Pneumonia, unspecified organism
[2023-12-07] MEDS ORDERED: METOPROLOL 5 MG/5 ML VIAL IVP ONE (12:00)
[2023-12-07 13:10] VITALS: O2SAT 92
--- NOTE | 2023-12-07 13:46 | Discharge Plan ---
Discharge Plan Problem Reviewed?: Yes Disposition: Home, Self Care Condition: Stable Prescriptions: Metoprolol Succinate [Toprol Xl] 100 mg PO DAILY 30 Days #60 tab Diet: Cardiac Activity Restrictions: No Restrictions Weight Bearing: Full Weight Instruction Topics: Atrial Fibrillation Dc, Heart Failure Congestive Ch Health Concerns: You are a 67-year-old male with past medical history of heart failure, hypertension, high cholesterol, atrial fibrillation with multiple procedures to attempt to resolve this, as well as COPD. You presented to the hospital with upper respiratory symptoms and were found to have a heart rate of 240. You were treated with multiple medications to reduce your heart rate, as well as to get excess fluid off of you. We initially started you on antibiotics but then determined that your respiratory symptoms were likely due to fluid overload and not pneumonia so those were stopped. Plan of Treatment: your rapid heart rate has resolved, but you are still in atrial fibrillation. You still need to continue to take medicines to keep your heart rate down and to prevent stroke. I am increasing your home dose of metoprolol, and adding a medicine called Cardizem. The Cardizem is the medicine you were receiving by IV drip. I would like you to keep a record of your heart rate, blood pressure, daily weights to report to your provider at the next appointment. it is highly likely that this is made worse by your drinking. I would strongly suggest that you stop drinking or at the very least cut back significantly. Assessment: 67-year-old male, no acute distress. Heart rhythm irregular, but controlled rate. Normal work of breathing on room air No Smoking: If you smoke, Please STOP! Call for help. Follow-up with: Freya Foster ARNP [Primary Care Provider] -
--- NOTE | 2023-12-07 13:56 | DISCHARGE SUMMARY ---
"Discharge Summary Admit Date: 12/06/23 Discharge Date: 12/07/23 Discharging Provider: Shantanu Mariano NP Primary Care Provider: Freya Foster Code Status: Attempt Resuscitation Condition at Discharge: Stable Discharge Disposition: 01 Home, Self Care - DIAGNOSES Discharge Diagnoses with Status of Each Condition: Atrial fibrillation with RVRresolved Atrial fibrillationchronic Acute exacerbation of CHFresolved HFpEFchronic Hypertensionchronic Hyperlipidemiachronic Alcohol dependencechronic - HPI History of Present Illness: 67-year-old male H significant for CHF, hypertension, hyperlipidemia, atrial fibrillation with multiple ablations, COPD presented to the ED with sore throat, productive cough, congestion x 1 week. Reported shortness of breath, but no chest pain. He was noted to have a heart rate of 240 in the ER, EKG was done that showed SVT, rate 193. Chest x-ray was performed which showed bibasilar patchy consolidations left greater than right suspicious for pneumonia versus pleural effusion versus pulmonary edema. He was admitted to ICU, and started on IV diltiazem drip. He received multiple doses of Lasix for acute exacerbation of CHF. He was initially treated for pneumonia, but his symptoms were thought to be more likely caused by his acute exacerbation of CHF, so these were discontinued. - CONSULTS | PROCEDURES Procedures: chest x-ray, respiratory cultures which showed mixed respiratory hi - HOSPITAL COURSE Hospital Course: Patient was given multiple doses of IV diuretic, as well as being placed on diltiazem drip and additional diltiazem p.o. His metoprolol was increased from his home dose of 50 mg daily to 100 mg daily. After this increased dose of metoprolol, his heart rate returned to a normal rate. He was briefly on oxygen overnight, suspect underlying SANTIAGO. - ALLERGIES Allergies/Adverse Reactions: Allergies Allergy/AdvReac Type Severity Reaction Status Date / Time No Known Drug Allergies Allergy Verified 12/06/23 08:24 - MEDICATIONS Home Medications: Ambulatory Orders Medication Instructions Recorded Confirmed Aspirin Chewable [[place] 81 mg PO DAILY 12/06/23 12/06/23 Aspirin] Atorvastatin [Lipitor] 10 mg PO QPM 12/06/23 12/06/23 Cetirizine [ZyrTEC] 10 mg PO MOWEFR 12/06/23 12/06/23 Magnesium Citrate 250 mg PO DAILY 12/06/23 12/06/23 Multivitamin [Theragran] 1 each PO DAILY 12/06/23 12/06/23 Spironolactone [Aldactone] 25 mg PO DAILY 12/06/23 12/06/23 Metoprolol Succinate [Toprol Xl] 100 mg PO DAILY 30 Days #60 tab 12/07/23 - PHYSICAL EXAM AT DISCHARGE General Appearance: positive: No acute distress Eyes Bilateral: positive: Normal inspection Respiratory: positive: Chest non-tender, No respiratory distress Cardiovascular: positive: Irregularly irregular Peripheral Pulses: positive: 2+ Abdomen: positive: Non-tender Skin: positive: Color nml Extremities: positive: Non-tender Neurologic/Psychiatric: positive: Oriented x3 - LABS Result Diagrams: 12/07/23 04:14 12/07/23 04:14 - DIAGNOSTIC IMAGING Diagnostic Imaging Results: Final report reviewed Diagnostic Imaging Results Comments: Chest x-ray, EKG - SEPSIS Current Stage of Sepsis: Ruled out - QUALITY (Female Hip Fx Only) Was patient sent home on osteoporosis medication?: No - FOLLOW UP Follow Up: with PCP - TIME SPENT Time Spent in Discharge (Minutes): 35"
[2023-12-07 14:09] VITALS: BP 116/93
[2023-12-08] MEDS ORDERED: METOPROLOL SUCCINATE 50 MG TABLET PO SCH (10:00)
== END 2023-12-07 14:53 | disposition home or self-care (01) ==
LOC: ED 08:06 → ICU 10:42
PROVIDERS: ADMIT Physician Assistant Medical; ATTEND Nurse Practitioner Acute Care
DX: I11.0 Hypertensive heart disease with heart failure (principal); I50.33 Acute on chronic diastolic (congestive) heart failure; I48.20 Chronic atrial fibrillation, unspecified; E78.5 Hyperlipidemia, unspecified; F10.20 Alcohol dependence, uncomplicated; J44.9 Chronic obstructive pulmonary disease, unspecified; E78.00 Pure hypercholesterolemia, unspecified; Z20.818 Contact with and (suspected) exposure to other bacterial communicable diseases; Z20.822 Contact with and (suspected) exposure to COVID-19; Z20.828 Contact with and (suspected) exposure to other viral communicable diseases; Z79.82 Long term (current) use of aspirin; Z79.899 Other long term (current) drug therapy
CPT/HCPCS: 36415; 71045; 80048; 80053; 80076; 82330; 83690; 83735; 83880; 84100; 84484; 85025; 85610; 87070; 87150; 87205; 87633; 93005; 94640; 96365; 96366; 96367; 96368; 96375; 96376; 99284; 99285; A9270; G0378